=== PATIENT | male | born 1965 | race Caucasian/White ===

== ENCOUNTER → 2023-10-07 15:04 | Outpatient (REF) | payer OTHER, SELFPAY | LOC: RAD 15:04 | PROVIDERS: ATTENDING PHYSICIAN Neurological Surgery; FAMILY PHYSICIAN Family Medicine | DX: Z98.1 Arthrodesis status (principal) | CPT/HCPCS: 72050 ==

== ENCOUNTER → 2023-11-26 13:13 | Outpatient (REF) | payer OTHER, SELFPAY | LOC: RAD 13:13 | PROVIDERS: ATTENDING PHYSICIAN Neurological Surgery; FAMILY PHYSICIAN Family Medicine | DX: Z98.1 Arthrodesis status (principal) | CPT/HCPCS: 72050 ==

== ENCOUNTER 2023-11-29 07:46 | Outpatient (RCR) | payer OTHER, SELFPAY | END 2023-11-29 23:59 | disposition home or self-care (01) | LOC: RPT 07:46 | PROVIDERS: ATTENDING PHYSICIAN Neurological Surgery; FAMILY PHYSICIAN Ophthalmology | DX: M54.12 Radiculopathy, cervical region (principal); Z98.1 Arthrodesis status; Z73.6 Limitation of activities due to disability | CPT/HCPCS: 97010; 97110; 97112; 97140; 97161 ==

== ENCOUNTER 2023-12-31 06:35 | Outpatient (RCR) | payer OTHER, SELFPAY | END 2023-12-31 23:59 | disposition home or self-care (01) | LOC: RPT 06:35 | PROVIDERS: ATTENDING PHYSICIAN Neurological Surgery; FAMILY PHYSICIAN Ophthalmology | DX: M54.12 Radiculopathy, cervical region (principal); Z98.1 Arthrodesis status; Z73.6 Limitation of activities due to disability | CPT/HCPCS: 97010; 97110; 97112; 97140 ==

== ENCOUNTER → 2024-03-03 13:46 | Outpatient (REF) | payer OTHER, SELFPAY | LOC: RAD 13:46 | PROVIDERS: ATTENDING PHYSICIAN Neurological Surgery; FAMILY PHYSICIAN Family Medicine | DX: Z98.1 Arthrodesis status (principal) | CPT/HCPCS: 72050 ==

== ENCOUNTER 2024-09-17 07:25 | Emergency (ER) | payer BC, SELFPAY ==
[2024-09-17 07:35] VITALS: BP 130/97
--- NOTE | 2024-09-17 08:19 | ED.GENMED ---
History of Present Illness
General
Chief Complaint: Musculo-Skeletal Complaint
Time Seen by Provider: 09/17/24 07:39
History of Present Illness
History of Present Illness:
59-year-old male presents to the emergency department for evaluation of left chest wall and left elbow pain after falling down the stairs last night. Awoke with significant bleeding from his elbow all over his bed. Has a history of rib injuries
and feels as though he may have fractured his ribs. No hemoptysis. Denies any head or neck injuries, not on anticoagulants
Past History
Past History
ED Past Medical History: Arrthythmia (afib), HTN, Hypercholesterolemia and Other (spondylolisthesis, seasonal allergies, allergy to shellfish)
ED Past Surgical History: None
Social History
Tobacco: Smoker
Alcohol: Other (drinks several days a week, a bottle of wine a night)
Personal:
Living: with family
Employment: Employed
Review of Systems
Review of Systems
Allergies reviewed?: Yes
All Other Systems: ROS reviewed and negative except as documented in HPI and ROS
Phy Exam
Physical Exam
Physical Exam:
GEN: Well appearing, NAD, WDWN
HEENT: Oral mucosa moist, no scleral icterus
Cardiac: Regular rate
Lung: No respiratory distress, no tachypnea
Chest: Tender to palpation along the thoracic back inferior ribs in the scapular line, no gross deformities or crepitus
MSK: No gross deformity or injuries
Skin: Good color, no pallor or jaundice, no rashes. 1 cm laceration to the left olecranon process, likely bursa sac violation with pearly white tissue and serous discharge noted
Neuro: AO x3, moves all extremities freely
Psych: Calm, cooperative
Course
Orders/Labs/Results
Orders:
Orders
09/17/24 07:38
Ribs, Left 3 View W/PA Chest CR [CR Ribs-left 3 Vw W/pa Chest] Urgent
Comment:
Reason For Exam: injury
09/17/24 07:39
Elbow, 3 view, Left [CR Elbow - Left Min 3 Views ] Urgent
Comment:
Reason For Exam: injury
09/17/24 08:18
Lidocaine [Lidocaine 4% Patch] 1 patch TOPICAL NOW STA
Apply Lidocaine patch(s) to:: L chest wall/thoracic back
Vital Signs
Initial and Last Documented VS:
Initial Vital Signs
Temp Pulse Resp BP Pulse Ox
99 F 92 16 130/97 98
09/17/24 07:35 09/17/24 07:35 09/17/24 07:35 09/17/24 07:35 09/17/24 07:35
Last Documented Vital Signs
Temp Pulse Resp BP Pulse Ox
99 F 92 16 130/97 98
09/17/24 07:35 09/17/24 07:35 09/17/24 07:35 09/17/24 07:35 09/17/24 07:35
Procedures
Laceration Closure
Left Elbow:
Status of Wound: clean
Size of Wound in cm: 1
Description of Wound Edges: sharp
Preparation: other (Copious irrigation with 500 cc normal saline as well as chlorhexidine)
Anesthesia: 1% Lidocaine with epi
Revision/Debridement: irrigate-direct pressure
Wound exploration: no tendon involvement
Type of Closure: single layer closure
Skin Closure Material: 4-0 nylon
Number of sutures: 2
Additional information:
Superficial suture closure with care taken to not perez the underlying bursa
MDM/Problems Addressed
MDM/Problems Addressed:
X-rays independently interpreted by me suggest nondisplaced fractures of ribs 7 and 8. No hemopneumothorax. In regards to the elbow injury he appears to have bursa sac violation thus prompting copious irrigation with antiseptic solutions. Suture
closure performed at the bedside, prescribed antibiotics. Patient declined tetanus
*Critical Care Note
Total Time (30-74mins, 75-104mins- exclusive of procedures): Not Applicable
ED Attending Note
-
Portions of this chart may have been created with voice recognition software.� Occasional wrong word or��sound alike� substitutions may have occurred due to the inherent limitations of voice recognition software.
Discharge Plan
Departure
Patient Disposition: Home (Routine Discharge)
Date of Disposition: 09/17/24
Time of Disposition: 08:23
Patient with high blood pressure during this ER visit?: No
Discharge Problem:
Left rib fracture, Laceration of elbow, left
Instructions: Stitches - ED discharge instructions, Rib fracture or bruised rib - ED discharge instructions
Prescriptions:
New
cephalexin 500 mg capsule
500 mg PO Q8H 7 Days Qty: 21 0RF
No Action
cetirizine 10 MG tablet
10 mg PO DAILY
aspirin 81 MG tablet,delayed release (DR/EC)
81 mg PO DAILY
finasteride 5 mg tablet
5 mg PO DAILY
cephalexin 750 mg capsule
750 mg PO BID Qty: 14 0RF
Activity Restrictions/Additional Instructions:
Keep wound dry for the remainder of the day then begin washing on a daily basis starting tomorrow morning
If the area becomes red hot and swollen return to the emergency department for suture removal and irrigation, I have prescribed you antibiotics in the event that symptoms develop including discharge, pain, or redness
You declined tetanus immunization today
For the rib fracture I recommend Tylenol and ibuprofen every 6-8 hours as well as [id number] lidocaine patches
Your elbow x-ray showed no obvious fracture however there may be a minor chip/avulsion injury next to your wound, this may also be a chronic bone spur
Interventions
Interventions:
*Risk Screen - Suicide Last Done: 09/17/24 07:35
*General Assessment Last Done: 09/17/24 08:25
*Neglect/Abuse Screening Last Done: 09/17/24 07:35
*ED COVID-19 Vaccine History Last Done: 09/17/24 08:25
*Nursing Disposition Last Done: 09/17/24 08:41
ED-Musculoskeletal Assessment Last Done: 09/17/24 08:25
Discharge Date and Time
Discharge Date/Time: 09/17/24 08:41
Print Language: HONDURAN
[2024-09-17] MEDS: LIDOCAINE 4% PATCH 1 PATCH TOPICAL (08:32)
== END 2024-09-17 08:41 | disposition home or self-care (01) ==
LOC: EMR 07:25
PROVIDERS: EMERGENCY PHYSICIAN Emergency Medicine; FAMILY PHYSICIAN Family Medicine
DX: S22.32XA Fracture of one rib, left side, initial encounter for closed fracture (principal); S51.012A Laceration without foreign body of left elbow, initial encounter; W10.9XXA Fall (on) (from) unspecified stairs and steps, initial encounter; I48.91 Unspecified atrial fibrillation; I10 Essential (primary) hypertension; E78.00 Pure hypercholesterolemia, unspecified; F17.200 Nicotine dependence, unspecified, uncomplicated
CPT/HCPCS: 99283; 12001; 71101; 73080